=== PATIENT | male | born 1945 | race Caucasian/White ===

== ENCOUNTER → 2016-04-05 | Day surgery (SDC) | payer MEDICARE, BC ==
[~2016-04-05] MED LIST: ASPI-482 PO; FOLI1TAB16 PO; METH2.5T PO; TAMS0.4C97 PO; USTE45DI SQ; VIT1TABL34 PO
[2016-04-05 13:12] VITALS: BP 151/77
[2016-04-05 13:16] VITALS: BP 138/67
[2016-04-05 13:30] VITALS: BP 142/61
[2016-04-05 13:45] VITALS: BP 148/54
--- NOTE | 2016-04-05 13:55 | NUR ---
Dr Nunez numbed area with 1% Lidocaine using sterile technique. Incision made using supplies from [employer]. [employer] loop recorder removed using forceps with ease, all in one piece. Incision closed with 3.0 Vicryl sutures and steri strips to cover. PT tolerated well. Minor bleeding. PT left ambulatory via private vehicle. Mayra NDIAYE
--- NOTE | 2016-04-05 20:06 | OP ---
DATE OF SURGERY: 04/05/2016 PROCEDURE: Implantable loop recorder removal. INDICATIONS: The patient had an implantable loop recorder placed in June. At present, he wants to have it removed as he does not feel it is providing any additional information. DESCRIPTION OF PROCEDURE: The patient was brought. Informed consent and fasting state to the holding area. He was prepped and draped in the usual sterile fashion. 1% lidocaine was infiltrated into the existing incision, and using a combination of sharp and blunt dissection, the existing ILR was removed with forceps. The wound was then closed in 2 layers with 4-0 Vicryl. The skin was then closed with Steri-Strips. The patient was discharged in a stable condition. IMPRESSION: Successful removal of an implantable loop recorder. LILLIAN LEMOS MD DR: YUVAL/gilles JOB#: [id number] / [id number] HIRA Daigle MD
--- NOTE | 2016-04-23 09:20 | HP ---
ADMIT DATE: 04/05/2016 PREOPERATIVE HISTORY CHIEF COMPLAINT: Syncope with ILR in place. The patient wants the ILR removed. HISTORY OF PRESENT ILLNESS: This is a patient who had an implantable loop recorder placed on 04/28/2015. He subsequently had a negative EP study in July 2015. He has had no further syncope. There have been no arrhythmias detected. He would like to have the device removed. PHYSICAL EXAMINATION: GENERAL: He appears comfortable. VITAL SIGNS: As documented. CARDIOVASCULAR: Revealed normal first and second heart sounds with a 2 x 6 ejection systolic murmur. CHEST: Clear. EXTREMITIES: Revealed no edema. SKIN: There are no skin rashes. IMPRESSION AND PLAN: Implantable loop recorder removal: The patient wishes to have this removed. We will proceed with this. There have been no arrhythmias detected for 6 months. He has had a negative EP study. LILLIAN LEMOS MD DR: YUVAL/gilles JOB#: [id number] / [id number] AUNDREA Steinberg MD
== END | disposition home or self-care (01) ==
LOC: OPINF 12:35
PROVIDERS: ATTEND Internal Medicine Cardiovascular Disease
DX: Z45.09 Encounter for adjustment and management of other cardiac device (principal); M19.90 Unspecified osteoarthritis, unspecified site
CPT/HCPCS: 33284

== ENCOUNTER → 2016-05-10 | Outpatient (CLI) | payer MEDICARE, BC ==
[2016-04-05 13:45] VITALS: BP 148/54
[2016-05-10 10:16] LABS: BASO % 1 % (0-3); EOS # 0.1 x10^3/uL (0.0-0.7); EOS % 1 % (0-3); HEMOGLOBIN 12.4 g/dL (13.0-17.5); LYMPH % 16 % (24-48); MEAN CORPUSCULAR HEMOGLOBIN 31 pg (25-35); MEAN CORPUSCULAR HGB CONC 33 g/dL (31-37); MEAN CORPUSCULAR VOLUME 94 fL (79-100); MONO % 8 % (0-9); NEUT # 8.9 x10^3uL (1.8-7.7); NEUT % 74 % (31-73); PLATELET COUNT 228 x10^3/uL (140-400); RED BLOOD COUNT 4.06 x10^6/uL (4.30-5.70); RED CELL DISTRIBUTION WIDTH 14.8 % (11.5-14.5); WHITE BLOOD COUNT 12.1 x10^3/uL (4.0-11.0)
[2016-05-10 10:17] LABS: BASO # 0.1 x10^3/uL (0.0-0.2)
[2016-05-10 10:30] LABS: ALBUMIN 3.1 g/dL (3.4-5.0); C REACTIVE PROTEIN 1.8 mg/L (0-3.3); CREATININE 1.8 mg/dL (0.7-1.3); DIRECT BILIRUBIN 0.2 mg/dL (0.0-0.2); GFR 37.6; TOTAL BILIRUBIN 0.6 mg/dL (0.2-1.0); TOTAL PROTEIN 7.3 g/dL (6.4-8.2)
[2016-05-10 11:20] LABS: SEDIMENTATION RATE 24 (0-15)
== END | disposition home or self-care (01) ==
LOC: LAB 09:56
DX: Z79.899 Other long term (current) drug therapy (principal)
CPT/HCPCS: 36415; 80076; 82565; 85027; 85651; 86140

== ENCOUNTER → 2016-08-15 | Outpatient (CLI) | payer MEDICARE, BC ==
[2016-04-05 13:45] VITALS: BP 148/54
== END | disposition home or self-care (01) ==
LOC: LAB 10:24
PROVIDERS: ATTEND Internal Medicine Rheumatology
DX: M35.3 Polymyalgia rheumatica (principal); R79.82 Elevated C-reactive protein (CRP); R70.0 Elevated erythrocyte sedimentation rate
CPT/HCPCS: 36415; 85651; 86140

== ENCOUNTER → 2016-10-23 | Outpatient (CLI) | payer MEDICARE, BC ==
[2016-04-05 13:45] VITALS: BP 148/54
[2016-10-23 10:34] LABS: CREATININE 1.8 mg/dL (0.7-1.3)
[2016-10-23 10:35] LABS: GFR 37.5
== END | disposition home or self-care (01) ==
LOC: LAB 09:54
PROVIDERS: ATTEND Internal Medicine Rheumatology
DX: M06.9 Rheumatoid arthritis, unspecified (principal); Z79.899 Other long term (current) drug therapy
CPT/HCPCS: 36415; 82565; 85651

== ENCOUNTER → 2016-12-27 | Outpatient (CLI) | payer MEDICARE, BC ==
[2016-04-05 13:45] VITALS: BP 148/54
== END | disposition home or self-care (01) ==
LOC: LAB 14:22
PROVIDERS: ATTEND Orthopaedic Surgery Sports Medicine
DX: M25.552 Pain in left hip (principal); F17.200 Nicotine dependence, unspecified, uncomplicated; I10 Essential (primary) hypertension; Z79.899 Other long term (current) drug therapy
CPT/HCPCS: 36415; 85651; 86140

== ENCOUNTER → 2017-06-12 | Outpatient (CLI) | payer MEDICARE, BC ==
[2016-04-05 13:45] VITALS: BP 148/54
[~2017-06-12] MED LIST changes: +BUPIVACAINE MPF 0.25% 10 ML VIAL. ONE; +IOHEXOL 300 MG/ML 50 ML VIAL. ONE; +LIDOCAINE 1% PF 30 ML VIAL. ONE; +methylPREDNISolone ACETATE 40 MG/ML VIAL. ONE; +methylPREDNISolone ACETATE 80 MG/ML VIAL. ONE
== END | disposition home or self-care (01) ==
LOC: SURG 09:57
PROVIDERS: ATTEND Anesthesiology Pain Medicine
DX: M16.12 Unilateral primary osteoarthritis, left hip (principal); K21.9 Gastro-esophageal reflux disease without esophagitis; M35.3 Polymyalgia rheumatica; Z98.890 Other specified postprocedural states; Z87.891 Personal history of nicotine dependence; Z72.89 Other problems related to lifestyle; Z85.828 Personal history of other malignant neoplasm of skin; Z98.1 Arthrodesis status; Z79.82 Long term (current) use of aspirin; Z79.899 Other long term (current) drug therapy; Z86.19 Personal history of other infectious and parasitic diseases
CPT/HCPCS: 20610; 77002; J1030; J1040; J2001; J3490; Q9967; 20611

== ENCOUNTER → 2020-06-01 | Outpatient (CLI) | payer MEDICARE, BC ==
[2016-04-05 13:45] VITALS: BP 148/54
[~2020-06-01] MED LIST changes: -BUPIVACAINE MPF 0.25% 10 ML VIAL. ONE; -IOHEXOL 300 MG/ML 50 ML VIAL. ONE; -LIDOCAINE 1% PF 30 ML VIAL. ONE; -methylPREDNISolone ACETATE 40 MG/ML VIAL. ONE; -methylPREDNISolone ACETATE 80 MG/ML VIAL. ONE
[2020-06-01 12:08] LABS: BASO % 0 % (0-3); EOS # 0.1 x10^3/uL (0.0-0.7); EOS % 2 % (0-3); HEMATOCRIT 34.1 % (39.0-53.0); HEMOGLOBIN 11.6 g/dL (13.0-17.5); LYMPH # 1.1 x10^3/uL (1.0-4.8); LYMPH % 16 % (24-48); MEAN CORPUSCULAR HEMOGLOBIN 33 pg (25-35); MEAN CORPUSCULAR HGB CONC 34 g/dL (31-37); MEAN CORPUSCULAR VOLUME 98 fL (79-100); MONO # 0.2 x10^3/uL (0.0-1.1); MONO % 3 % (0-9); NEUT # 5.6 x10^3uL (1.8-7.7); NEUT % 80 % (31-73); PLATELET COUNT 307 x10^3/uL (140-400); RED BLOOD COUNT 3.48 x10^6/uL (4.30-5.70); RED CELL DISTRIBUTION WIDTH 14.9 % (11.5-14.5)
[2020-06-01 12:24] LABS: ALBUMIN 3.7 g/dL (3.4-5.0); C REACTIVE PROTEIN 1.7 mg/L (0-3.3); CALCIUM 8.6 mg/dL (8.5-10.1); CREATININE 1.6 mg/dL (0.7-1.3); DIRECT BILIRUBIN 0.2 mg/dL (0.0-0.2); GFR 42.6; POTASSIUM 4.4 mmol/L (3.5-5.1); TOTAL BILIRUBIN 0.7 mg/dL (0.2-1.0); TOTAL PROTEIN 7.5 g/dL (6.4-8.2); URIC ACID 5.7 mg/dL (3.5-7.2)
== END ==
LOC: LAB 11:13
PROVIDERS: ATTEND Internal Medicine Rheumatology
DX: M35.3 Polymyalgia rheumatica (principal); R89.9 Unspecified abnormal finding in specimens from other organs, systems and tissues; M25.50 Pain in unspecified joint; Z79.899 Other long term (current) drug therapy
CPT/HCPCS: 36415; 80053; 82248; 84550; 85025; 86140

== ENCOUNTER → 2020-07-04 | Outpatient (CLI) | payer MEDICARE, BC ==
[2016-04-05 13:45] VITALS: BP 148/54
[2020-07-04 11:27] LABS: BASO % 0 % (0-3); EOS # 0.1 x10^3/uL (0.0-0.7); EOS % 1 % (0-3); HEMOGLOBIN 11.1 g/dL (13.0-17.5); LYMPH # 1.1 x10^3/uL (1.0-4.8); LYMPH % 14 % (24-48); MEAN CORPUSCULAR HEMOGLOBIN 35 pg (25-35); MEAN CORPUSCULAR HGB CONC 34 g/dL (31-37); MEAN CORPUSCULAR VOLUME 103 fL (79-100); MONO # 0.4 x10^3/uL (0.0-1.1); MONO % 5 % (0-9); NEUT # 6.2 x10^3uL (1.8-7.7); NEUT % 79 % (31-73); PLATELET COUNT 297 x10^3/uL (140-400); RED CELL DISTRIBUTION WIDTH 18.4 % (11.5-14.5); WHITE BLOOD COUNT 7.8 x10^3/uL (4.0-11.0)
[2020-07-04 11:31] LABS: DIRECT BILIRUBIN 0.2 mg/dL (0.0-0.2); GFR 42.6; TOTAL PROTEIN 7.3 g/dL (6.4-8.2)
[2020-07-04 11:56] LABS: ALBUMIN 3.5 g/dL (3.4-5.0); C REACTIVE PROTEIN 7.7 mg/L (0-3.3); CALCIUM 8.2 mg/dL (8.5-10.1); CREATININE 1.6 mg/dL (0.7-1.3); POTASSIUM 4.5 mmol/L (3.5-5.1); TOTAL BILIRUBIN 1.1 mg/dL (0.2-1.0); URIC ACID 6.7 mg/dL (3.5-7.2)
== END ==
LOC: LAB 10:41
PROVIDERS: ATTEND Internal Medicine Rheumatology
DX: Z79.899 Other long term (current) drug therapy (principal)
CPT/HCPCS: 36415; 80048; 80076; 84550; 85025; 86140

== ENCOUNTER → 2021-02-07 | Outpatient (CLI) | payer MEDICARE, BC ==
[2016-04-05 13:45] VITALS: BP 148/54
[2021-02-07 13:20] LABS: BASO % 0 % (0-3); EOS # 0.2 x10^3/uL (0.0-0.7); EOS % 2 % (0-3); HEMATOCRIT 31.6 % (39.0-53.0); HEMOGLOBIN 10.5 g/dL (13.0-17.5); LYMPH # 1.1 x10^3/uL (1.0-4.8); LYMPH % 10 % (24-48); MEAN CORPUSCULAR HEMOGLOBIN 36 pg (25-35); MEAN CORPUSCULAR HGB CONC 33 g/dL (31-37); MEAN CORPUSCULAR VOLUME 107 fL (79-100); MONO # 1.1 x10^3/uL (0.0-1.1); MONO % 10 % (0-9); NEUT # 8.5 x10^3uL (1.8-7.7); NEUT % 78 % (31-73); PLATELET COUNT 316 x10^3/uL (140-400); RED BLOOD COUNT 2.95 x10^6/uL (4.30-5.70); RED CELL DISTRIBUTION WIDTH 16.4 % (11.5-14.5); WHITE BLOOD COUNT 10.8 x10^3/uL (4.0-11.0)
[2021-02-07 13:23] LABS: ALBUMIN 3.7 g/dL (3.4-5.0); ALBUMIN/GLOBULIN RATIO 0.9 (1.0-1.7); CALCIUM 8.6 mg/dL (8.5-10.1); CREATININE 1.6 mg/dL (0.7-1.3); GFR 42.5; POTASSIUM 4.9 mmol/L (3.5-5.1); TOTAL BILIRUBIN 0.4 mg/dL (0.2-1.0); TOTAL PROTEIN 7.8 g/dL (6.4-8.2)
== END ==
LOC: LAB 10:38
PROVIDERS: ATTEND Dermatology
DX: Z51.81 Encounter for therapeutic drug level monitoring (principal)
CPT/HCPCS: 36415; 80053; 85025; 86481; 86704; 86705; 86706; 86803; 87340

== ENCOUNTER → 2021-05-05 | Outpatient (CLI) | payer MEDICARE, BC ==
[2016-04-05 13:45] VITALS: BP 148/54
[~2021-05-05] MED LIST changes: +AMLO-186 PO; +CIALIS PO; +OMEP20CA16 PO; +PRED-220 PO; +SECU150P2 SQ; +TELM80TA PO
== END ==
LOC: LAB 09:13
PROVIDERS: ATTEND Surgery
DX: Z01.812 Encounter for preprocedural laboratory examination (principal); Z20.822 Contact with and (suspected) exposure to COVID-19; C44.91 Basal cell carcinoma of skin, unspecified
CPT/HCPCS: U0003

== ENCOUNTER → 2021-05-10 | Day surgery (SDC) | payer MEDICARE, BC ==
[~2021-05-10] MED LIST changes: +BUPIVACAINE-EPI 0.25%-1:200000 MPF 30 ML VIAL. ONE
--- NOTE | 2021-05-10 07:38 | NUR ---
rapid COVID test negative
[2021-05-10 08:08] VITALS: BP 128/61
--- NOTE | 2021-05-10 08:10 | PDOC4 ---
Operative Report DATE May 102021 at 8:07 AM Preop Diagnosis Skin lesion posterior neck x2 Post-op Diagnosis Same Operation Performed Excision of skin lesions Patient is 75-year-old male has had previous basal cell carcinomas removed from his face and neck has 2 lesions that he is concerned about 1 in the left posterior auricular area and one in the right posterior neck. Procedure of excision was explained to patient detail risk-benefit were also discussed occluding bleeding infection alternatives to this procedure also discussed with the patient seemed understand and gave a verbal written consent to have procedure performed. Patient was taken to the minor's room placed in a sitting position his left neck was prepped and draped in usual sterile fashion using ChloraPrep. Area around the skin lesion was injected with quarter percent Marcaine with epinephrine elliptical incision made with 15 blade scalpel the skin lesion measured 1 by half a centimeter with a 1 cm margin this was completely excised sharply sent for pathology the wound was then closed in a single layer 4-0 subcuticular Monocryl dressed with Mastisol Steri-Strips and island dressing. Tensions return to the second lesion which is on the posterior neck on the left side this was quite small 0.5 x 0.5 cm. This area was prepped and draped in usual sterile fashion using ChloraPrep area around the lesion was injected with quarter percent Marcaine with epinephrine a 15 blade scalpel was used to shave the dermis of the lesion and cautery was then used. This was dressed with a island dressing. Patient tolerated procedure well was taken to recovery in stable condition all sponge instrument needle counts listed as correct estimated blood loss 5 mL. Patient was discharged home in stable condition to follow-up in 2-week Surgeon Tr ANESTHESIA PROPOSED: LOCAL Blood Loss 5 mL IV Fluid None Specimen Skin lesion left neck 1 x 0.5 cm, skin lesion right posterior neck 0.5 x 0.5 cm Complications None ISAIAS CHATTERJEE MD May 10, 2021 08:10
--- NOTE | 2021-05-10 08:13 | PDOC1 ---
History of Present Illness Reason for Visit: Excision of skin lesions History of Present Illness 75-year-old male with complaints of 2 skin lesions 1 on the right posterior neck and left posterior neck concerning because of his previous history of basal cell carcinoma Chief Complaint: Skin lesions Allergies: Coded Allergies: No Known Drug Allergies (Unverified , 05/10/21) Past Medical History Cardiac: HTN Pulmonary: No pertinent hx GI: No pertinent hx Heme/Onc: Cancer (Basal cell carcinoma the skin) Hepatobiliary: No pertinent hx Psych: No pertinent hx Musculoskeletal: No pertinent hx Rheumatologic: No pertinent hx Infectious disease: No pertinent hx ENT: No pertinent hx Renal/: No pertinent hx Endocrine: No pertinent hx Dermatology: No pertinent hx Past Surgical History: Other (Cervical fusion lumbar laminectomy shoulder replacement excision of skin lesions) Past Social History Smoke: No Alcohol: rare Drugs: None Lives: with Family Review of Systems Review Of Systems Fourteen system , review of systems has been reviewed. See HPI for pertinent positives and negative responses, other [place]pton all other systems are negative, non pertinent or non contributory Constitutional: No: Fever, Chills, Sweats, Weakness, Malaise, Other Eyes: No: Blurry vision, Decreased vision, Double vision, Dry eyes, Excessive tearing, Eye Pain, Itchy Eyes, Loss of vision, Photophobia, Scotomata, Uses contacts, Uses glasses, Other ENT: No: Ear pain, Ear discharge, Nose pain, Nose discharge, Nose congestion, Mouth pain, Mouth swelling, Throat pain, Throat swelling, Other Respiratory: No: Cough, Hemoptysis, Orthopnea, Pleuritic Pain, Shortness of breath, SOB with excertion, Sputum Changes, Stridor, Tachypnea, Wheezing, Other Cardiovascular: No: Chest Pain, Palpitations, Orthopnea, Paroxysmal Noc. Dyspnea, Edema, Lt Headedness, Other Gastrointestinal: No: Nausea, Vomiting, Abdominal Pain, Diarrhea, Constipation, Melena, Hematochezia, Other Genitourinary: No: Change in Menstrual Cycle, Dysmenorrhea, Dyspareunia, Dysuria, Flank Pain, Genital Discharge, Genital Ulcers, Henaturia, Incontinence, Irregular/heavy Menses, Nocturia, Pelvic Pain, Scrotal Mass/pain, Slowing Urinary Stream, Urinary Frequency/urgency, Vulvar/vaginal Symptoms, Other Musculoskeletal: No: Gait Disturbance, Joint Pain, Joint Stiffness, Joint Swelling, Muscle Pain, Muscular Weakness, Pain In:, Swelling In:, Other SKIN: YES: Other (Skin lesions) Neurological: No: Behavorial Changes, Bowel/Bladder ControlChng, Confusion, Dizziness, Gait Disturbance, Headaches, Impaired Coord/balance, Memory Loss, Numbness/Tingling, Seizures, Speech Problems, Tremors, Visual Changes, Weakness, Other Medications Current Medications Bupivacaine HCl/ Epinephrine Bitart (Sensorcaine-Epi 0.25%-1:727511 Mpf) 30 ml STK-MED ONCE .ROUTE ; Start 05/10/21 at 06:57; Stop 05/10/21 at 06:57; Status DC Active Scripts Active Reported Prednisone 10 Mg Tablet 10 Mg PO DAILY Omeprazole 20 Mg Capsule.dr 1 Cap PO DAILY Micardis (Telmisartan) 80 Mg Tablet 1 Tab PO DAILY Amlodipine Besylate 5 Mg Tablet 1 Tab PO DAILY Cosentyx Pen (Secukinumab) 150 Mg/1 Ml Pen.injctr 150 Mg SQ WEEKLY [Cialis] 1 Tab PO DAILY Preservision Areds Tablet (Vit A/Vit C/Vit E/Zinc/Copper) 1 Each Tablet 1 Each PO Flomax (Tamsulosin Hcl) 0.4 Mg Cap.er.24h 1 Cap PO DAILY Exam Vital Signs Vital Signs Date Time Temp Pulse Resp B/P (MAP) Pulse Ox O2 Delivery O2 Flow Rate FiO2 05/10/21 07:28 97.9 73 20 125/62 (83) 97 Room Air General Appearance: Alert, Oriented X3, Cooperative, No acute distress HEENT: Atraumatic, PERRLA, EOMI Respiratory: Clear to auscultation, Normal air movement Heart: Regular rate, No murmurs BREASTS: Normal Abdominal: Normal bowel sounds, Soft, No tenderness Extremities: No edema Skin: No significant lesion (1 cm lesion on the left posterior neck 0.5 cm lesion on the right posterior neck) Neuro: Normal speech Psych/Mental Status: Mental status NL Assessment/Plan Assessment/Plan Skin lesions with a history of basal cell carcinoma plan excision COURSE Allergies Coded Allergies Type Severity Reaction Last Updated Verified No Known Drug Allergies 05/10/21 No Current Medications Medications (Trade) Dose Ordered Sig/Jarrett Route PRN Reason Start Time Stop Time Status Last Admin Dose Admin Bupivacaine HCl/ Epinephrine Bitart (Sensorcaine-Epi 0.25%-1:100544 Mpf) 30 ml STK-MED ONCE .ROUTE 05/10/21 06:57 05/10/21 06:57 DC Orders Procedure Category Date Status Time Bupivac-Epi PHA 05/10/21 Complete 0.25%-1: Mpf 06:57 Vital Signs Date Time Temp Pulse Resp B/P (MAP) Pulse Ox O2 Delivery O2 Flow Rate FiO2 05/10/21 07:28 97.9 73 20 125/62 (83) 97 Room Air Justification of Admission: Justification of Admission: Justification of Admission Dx: N/A ISAIAS CHATTERJEE MD May 10, 2021 08:13
--- NOTE | 2021-05-10 08:28 | DISCH ---
DISCHARGE INSTRUCTIONS-DC Condition on Discharge Condition on Discharge: Stable Activity after Discharge Activity Instructions for Disc: Activity as tolerated Diet after Discharge Diet after Discharge: Regular Wound/Incision Care Other wound/incision instructi: May shower in 24 hours Contacting the after DC Call your doctor for: If your condition worsens Follow-Up Follow up with: Dr. Chatterjee in 2 weeks ISAIAS CHATTERJEE MD May 10, 2021 08:28
--- NOTE | 2021-05-15 09:14 | PATHOLOGY ---
[facility] Accession Number: [id number] . 01 Material submitted: . PART A: neck - LEFT POSTERIOR NECK SKIN LESION. Modifiers: left, posterior PART B: AURICULAR - RIGHT POST AURICULAR SKIN LESION. Modifiers: right, posterior . 01 Clinical history: . L NECK SKIN LESION R POST AURICULAR SKIN . 02 Diagnosis: A. Skin and subcutaneous tissue, left posterior neck lesion excision: - BASAL CELL CARCINOMA, ULCERATED; FOCAL TUMOR INVOLVEMENT OF AN INKED SIDE MARGIN, DEEP MARGIN FREE OF NEOPLASM. . B. Skin, right post auricular lesion shave biopsy: - BASAL CELL CARCINOMA, EXTENSIVELY INVOLVING DEEP MARGIN OF SHAVE BIOPSY. (JPM/db; 05/12/2021) LBQ 05/12/2021 1300 Local . 02 Electronically signed: . Nando Martin MD, Pathologist NPI- [id number] . 01 Gross description: . A. The specimen is received in formalin, labeled "Nando Avila III, left neck". The specimen is additionally labeled on the requisition as, "left posterior neck". Received is an ellipse of skin measuring 1.4 x 0.6 x 0.6 cm in greatest dimensions. The epidermal surface displays an ill-defined, irregular in contour and light brown lesion measuring 1.1 x 0.3 cm. The surgical margin is inked. The specimen is sectioned into five pieces and entirely submitted in cassettes A1 and A2, with the tips placed in cassette A2. . B. The specimen is received in formalin, labeled "Nando Avila III, right postauricular". Received is a shave biopsy measuring 0.7 x 0.5 x 0.1 cm in greatest dimensions. The epidermal surface is pale martell, irregular in contour and flaky in appearance. The surgical margin is inked. The specimen is bisected and entirely submitted in cassette B1. (CAA; 05/11/2021) QAC/QAC 05/11/2021 0824 Local . 02 Pathologist provided ICD-10: C44.41, C44.212 . 02 CPT . 336721, [id number] Specimen Comment: A courtesy copy of this report has been sent to [phone] Specimen Comment: Report sent to Performed at: [address], [place] [id number] MD Raleigh Sibley MD Phone: [phone] Performed at: [address] [facility] [address] [place] [address] [id number] MD Nando Martin MD Phone: [phone]
== END | disposition home or self-care (01) ==
LOC: SURG 07:15
PROVIDERS: ATTEND Surgery
DX: R22.1 Localized swelling, mass and lump, neck (principal); C44.41 Basal cell carcinoma of skin of scalp and neck; C44.212 Basal cell carcinoma of skin of right ear and external auricular canal; I10 Essential (primary) hypertension; M19.90 Unspecified osteoarthritis, unspecified site; K21.9 Gastro-esophageal reflux disease without esophagitis; Z87.891 Personal history of nicotine dependence; Z79.899 Other long term (current) drug therapy; Z72.89 Other problems related to lifestyle; Z98.890 Other specified postprocedural states; Z86.19 Personal history of other infectious and parasitic diseases
CPT/HCPCS: 11305; 11621; J3490

== ENCOUNTER → 2021-06-20 | Outpatient (CLI) | payer MEDICARE, BC ==
[2021-05-10 08:08] VITALS: BP 128/61
[~2021-06-20] MED LIST changes: -BUPIVACAINE-EPI 0.25%-1:200000 MPF 30 ML VIAL. ONE
[2021-06-20 11:18] LABS: BASO % 0 % (0-3); EOS # 0.1 x10^3/uL (0.0-0.7); EOS % 1 % (0-3); HEMATOCRIT 37.5 % (39.0-53.0); HEMOGLOBIN 12.6 g/dL (13.0-17.5); LYMPH # 1.2 x10^3/uL (1.0-4.8); LYMPH % 14 % (24-48); MEAN CORPUSCULAR HEMOGLOBIN 33 pg (25-35); MEAN CORPUSCULAR HGB CONC 34 g/dL (31-37); MEAN CORPUSCULAR VOLUME 98 fL (79-100); MONO # 0.8 x10^3/uL (0.0-1.1); MONO % 9 % (0-9); NEUT # 6.6 x10^3uL (1.8-7.7); NEUT % 75 % (31-73); PLATELET COUNT 259 x10^3/uL (140-400); RED BLOOD COUNT 3.83 x10^6/uL (4.30-5.70); RED CELL DISTRIBUTION WIDTH 13.4 % (11.5-14.5); WHITE BLOOD COUNT 8.8 x10^3/uL (4.0-11.0)
[2021-06-20 11:34] LABS: ALBUMIN 3.3 g/dL (3.4-5.0); ALBUMIN/GLOBULIN RATIO 0.9 (1.0-1.7); CALCIUM 8.5 mg/dL (8.5-10.1); CREATININE 1.6 mg/dL (0.7-1.3); GFR 42.5; POTASSIUM 4.4 mmol/L (3.5-5.1); TOTAL BILIRUBIN 0.7 mg/dL (0.2-1.0)
[2021-06-20 21:09] LABS: CHOLESTEROL/HDL RATIO 2.9
== END ==
LOC: LAB 10:06
PROVIDERS: ATTEND Nurse Practitioner
DX: I47.2 Ventricular tachycardia (principal); I10 Essential (primary) hypertension
CPT/HCPCS: 36415; 80053; 80061; 83735; 84443; 85025

== ENCOUNTER → 2021-07-11 | Outpatient (CLI) | payer MEDICARE, BC ==
[2021-05-10 08:08] VITALS: BP 128/61
--- NOTE | 2021-07-11 15:46 | RAD ---
EXAM: CT CHEST WITHOUT CONTRAST HISTORY: Dyspnea with minimal exertion COMPARISON: CT chest 03/28/2015. TECHNIQUE: Helical CT of the chest performed without contrast. Coronal and sagittal reformats were o btained. One or more of the following individualized dose reduction techniques were utilized for this examinat ion: 1. Automated exposure control 2. Adjustment of the mA and/or kV according to patient size 3. Use of iterative reconstruction technique. FINDINGS: Thyroid gland and thoracic inlet: Normal. Heart and great vessels: The heart is normal in size. There are coronary artery calcifications. The t horacic aorta is normal in caliber with mild calcified atherosclerosis. Mediastinum and charleen: There are calcified mediastinal and left hilar lymph nodes. Small noncalcified mediastinal lymph nodes, likely reactive. Small hiatal hernia. Lungs and pleura: Mild cystic changes in the lungs, likely reflecting emphysema. Unchanged pleural pa renchymal scarring in the lung. Calcified granuloma in the left lower lobe. Central airways are clear . No pleural effusion. Chest wall and axillae: No axillary lymphadenopathy. Upper abdomen: There are calcified splenic granulomas. Probable 1.4 cm exophytic simple cyst in the r ight kidney 1.5 cm simple cyst in the left kidney. Bones: There is a right shoulder prosthesis, incompletely visualized. No acute osseous abnormality. M ild degenerative disc disease. IMPRESSION: 1. Mild cystic changes in the lungs, likely reflecting emphysema. This is slightly increased from 20 16. 2. Coronary artery calcifications. Electronically signed by: Terri Sinha MD (07/11/2021 3:43 PM) [facility]
== END ==
LOC: CT 10:59
PROVIDERS: ATTEND Internal Medicine Cardiovascular Disease
DX: R91.8 Other nonspecific abnormal finding of lung field (principal); I25.10 Atherosclerotic heart disease of native coronary artery without angina pectoris; I70.0 Atherosclerosis of aorta; K44.9 Diaphragmatic hernia without obstruction or gangrene; I89.8 Other specified noninfective disorders of lymphatic vessels and lymph nodes; D73.89 Other diseases of spleen; Z96.611 Presence of right artificial shoulder joint
CPT/HCPCS: 71250